=== PATIENT | female | born 1955 | race Caucasian/White ===

== ENCOUNTER 2021-03-27 14:29 | Emergency (ER) | payer MEDICARE, OTHER ==
[~2021-03-27] VITALS: Ht 157.5 cm; Wt 84.5 kg
[2021-03-27] MEDS ORDERED: SERT-141 PO (15:07)
[2021-03-27] MEDS ORDERED: OMEP-218 PO (15:07)
[2021-03-27] MEDS ORDERED: METO1TAB32 PO (15:07)
[2021-03-27] MEDS ORDERED: CRES10TA PO (15:07)
[2021-03-27] MEDS ORDERED: NS 1,000 ML IV ONE (16:00)
[2021-03-27 16:46] LABS: BASO # 0.1 10^3/uL (0.0-0.2); BASO % 0.5 % (0.0-1.0); EOS # 0.1 10^3/uL (0.0-0.5); HEMATOCRIT 37.8 % (36.0-47.0); HEMOGLOBIN 12.3 g/dl (12.0-15.5); LYMPH # 1.6 10^3/uL (1.5-5.0); LYMPH % 13.6 % (24.0-44.0); MEAN CORPUSCULAR HEMOGLOBIN 31.4 pg (27.0-33.0); MEAN CORPUSCULAR HGB CONC 32.5 g/dl (32.0-36.5); MEAN CORPUSCULAR VOLUME 96.4 fl (80.0-96.0); MONO # 0.7 10^3/uL (0.0-0.8); MONO % 5.9 % (2.0-8.0); NEUTROPHILS # 9.5 10^3/uL (1.5-8.5); NEUTROPHILS % 78.8 % (36.0-66.0); PLATELET COUNT, AUTOMATED 244 10^3/uL (150-450); RED BLOOD COUNT 3.92 10^6/uL (4.00-5.40)
[2021-03-27 17:12] LABS: ALBUMIN 4.1 GM/DL (3.2-5.2); ALT/SGPT 34 U/L (12-78); BILIRUBIN,TOTAL 0.8 MG/DL (0.2-1.0); BLOOD UREA NITROGEN 16 MG/DL (7-18); CALCIUM LEVEL 9.7 MG/DL (8.8-10.2); CARBON DIOXIDE LEVEL 27 MEQ/L (21-32); CHLORIDE LEVEL 104 MEQ/L (98-107); CREATININE FOR GFR 0.85 MG/DL (0.55-1.30); GLOMERULAR FILTRATION RATE > 60.0 (>45); GLUCOSE, FASTING 84 MG/DL (70-100); LIPASE 165 U/L (73-393); SODIUM LEVEL 138 MEQ/L (136-145); TOTAL PROTEIN 6.8 GM/DL (6.4-8.2)
[2021-03-27] MEDS ORDERED: ISOVUE-370 76% 100ML VIAL As Ordered ONE (17:19)
--- NOTE | 2021-03-27 18:29 | REPVR ---
PROCEDURE INFORMATION: Exam: CT Abdomen And Pelvis With Contrast Exam date and time: 03/27/2021 5:22 PM Age: 65 years old Clinical indication: Abdominal pain; Additional info: Llq pain, R/O diverticulitis TECHNIQUE: Imaging protocol: Computed tomography of the abdomen and pelvis with contrast. Radiation optimization: All CT scans at this facility use at least one of these dose optimization techniques: automated exposure control; mA and/or kV adjustment per patient size (includes targeted exams where dose is matched to clinical indication); or iterative reconstruction. Contrast material: ISOVUE 370; Contrast volume: 100 ml; Contrast route: INTRAVENOUS (IV); COMPARISON: No relevant prior studies available. FINDINGS: Lungs: Clear appearing lung bases. Heart: The heart is normal in size and there is no pericardial effusion. Liver: There is enhancement through the liver. Gallbladder and bile ducts: Normal common bile duct. The gallbladder is absent. Pancreas: Normal pancreas. Spleen: Normal spleen. Adrenal glands: Normal adrenal glands. Normal adrenal glands. Kidneys and ureters: Normal appearing kidneys. Stomach and bowel: There are numerous diverticula of the left colon. There is surrounding inflammation involving the lower left colon and most consistent with changes of diverticulitis. There is no evidence of free fluid in the abdomen or pelvis. Normal appearing small bowel. Small bowel abuts the inflamed left:. Appendix: Normal appendix. Intraperitoneal space: There is no evidence of pneumoperitoneum. There is no evidence of pneumoperitoneum. Vasculature: The there is enhancement of the aorta which appears intact. There is enhancement of the SMV the and the SMA. Lymph nodes: There is no evidence of lymphadenopathy. Urinary bladder: Normal urinary bladder. Normal urinary bladder. Reproductive: Normal uterus. 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 There is prominent facet hypertrophy lower lumbar spine. There is moderate posterior disc protrusion L4-L5. Posterior osteophyte formation is noted at multiple levels. There is a total left hip prosthesis. Soft tissues: There is no evidence of soft tissue abnormality. IMPRESSION: Numerous large diverticula of the left colon and sigmoid colon. Surrounding hazy inflammation involving the lower left colon and consistent with changes of diverticulitis. Electronically signed by: Wisam Cantrell On 03/27/2021 18:29:03 PM
[2021-03-27] MEDS ORDERED: metroNIDAZOLE (FLAGYL) 500MG TABLET PO ONE (18:40)
[2021-03-27] MEDS ORDERED: CIPROFLOXACIN 400 MG in IV 1 EA IV ONE (18:40)
[2021-03-27] MEDS ORDERED: CIPR-249 PO (18:41)
[2021-03-27] MEDS ORDERED: FLAG500T PO (18:41)
[2021-03-27 20:08] VITALS: BP 125/71
== END 2021-03-27 20:10 | disposition home or self-care (01) ==
LOC: M ED 14:29
DX: K57.92 Diverticulitis of intestine, part unspecified, without perforation or abscess without bleeding (principal); I10 Essential (primary) hypertension; K21.9 Gastro-esophageal reflux disease without esophagitis; Z88.0 Allergy status to penicillin; Z79.899 Other long term (current) drug therapy
CPT/HCPCS: 74177; 80053; 83690; 85025; 96361; 96365; 99284; J0744; Q9967